=== PATIENT | male | born 2005 | race Caucasian/White ===

== ENCOUNTER 2024-04-08 06:19 | Emergency (ER) | payer OTHER, SELFPAY ==
[2024-04-08 06:25] VITALS: BP 124/72
[2024-04-08] MEDS: LET TOPICAL ANESTHETIC GEL 3 ML TOPICAL (06:39)
--- NOTE | 2024-04-08 06:41 | ED.SKININJ ---
HPI-Injury
General
Chief Complaint: Skin Surface Trauma
Source: patient and home care rn
Exam Limitations: developmental stage
Time Seen by Provider: 04/08/24 06:29
Nursing documentation reviewed up to this point in time: agreed with
History of Present Illness-Injury
Is this injury a work related problem?: No
Is pt an associate of [facility]/[place]?: No
Initial Injury comments:
Special-needs male from [facility] 2 cm scalp laceration in the left anterior scalp injured it on some headphones just prior to arrival he is acting normally per caregiver
Past History
Past History
ED Past Medical History: Psychiatric (Special needs behavioral issues)
Social History
Tobacco: Non-smoker
Alcohol: None
Drug: None
Personal: Single
Living: other
Employment: Not employed
Family History
Family History: Unable to obtain
Review of Systems
Review of Systems
All Other Systems: Not applicable
Phy Exam
Physical Exam
Physical Exam:
Physical Exam
General: no apparent distress, not acutely ill
Neck: No tongue bite
Lungs: no acute respiratory distress.
Neuro: Moves all extremities cooperative
Skin: 2 cm scalp laceration not involving the forehead on the left anterior scalp
Extremities: no edema.
Course
Orders/Labs/Results
Orders:
Orders
04/08/24 06:38
Lidocaine/Epinephrine/Tetracai [Let Topical Anesthetic Gel] 3 ml .ROUTE .STK-MED ONE
04/08/24 06:39
Lidocaine/Epinephrine/Tetracai [Let Topical Anesthetic Gel] 3 ml TOPICAL NOW STA
Vital Signs
Initial and Last Documented VS:
Initial Vital Signs
Temp Pulse Resp BP Pulse Ox
98.1 F 88 18 124/72 98
04/08/24 06:25 04/08/24 06:25 04/08/24 06:25 04/08/24 06:25 04/08/24 06:25
Last Documented Vital Signs
Temp Pulse Resp BP Pulse Ox
98.1 F 88 18 124/72 98
04/08/24 06:25 04/08/24 06:25 04/08/24 06:25 04/08/24 06:25 04/08/24 06:25
Procedures
Laceration Closure
Left Head:
Status of Wound: clean
Size of Wound in cm: 2
Description of Wound Edges: sharp
Preparation: cleaned with saline
Anesthesia: 1% Lidocaine with epi
Revision/Debridement: routine- no revision
Wound exploration: explored to base- no FB
Type of Closure: single layer closure
Skin Closure Material: 3-0 prolene
Number of sutures: 1
MDM/Problems Addressed
Differential Diagnosis Includes:
Laceration
*Critical Care Note
Total Time (30-74mins, 75-104mins- exclusive of procedures): Not Applicable
Update Note
Update Note:
Isolated scalp laceration
Will try some let gel, wound was irrigated by nursing
ED Attending Note
-
Portions of this chart may have been created with voice recognition software.� Occasional wrong word or��sound alike� substitutions may have occurred due to the inherent limitations of voice recognition software.
Discharge Plan
Departure
Patient Disposition: Home (Routine Discharge)
Date of Disposition: 04/08/24
Time of Disposition: 06:56
Patient with high blood pressure during this ER visit?: No
Condition: Good
Discharge Problem:
Laceration
Instructions: Laceration Repair With Stitches (DC)
Stand Alone Forms: Back to School
Activity Restrictions/Additional Instructions:
Stitches out in 7 to 10 days
You can gently wash his scalp with shampoo
Interventions
Interventions:
*Risk Screen - Suicide Last Done: 04/08/24 06:42
*General Assessment Last Done: 04/08/24 06:42
*Neglect/Abuse Screening Last Done: 04/08/24 06:42
ED- Fall Risk Assessment Last Done: 04/08/24 06:42
*ED COVID-19 Vaccine History Last Done: 04/08/24 06:42
ED-Skin Assessment Last Done: 04/08/24 06:42
Discharge Date and Time
Print Language: MEXICAN
--- NOTE | 2024-04-08 07:05 | EDRN ---
verbal report was given to the receiving RN at [facility]
== END 2024-04-08 07:06 | disposition home or self-care (01) ==
LOC: EMR 06:19
PROVIDERS: EMERGENCY PHYSICIAN Emergency Medicine
DX: S01.01XA Laceration without foreign body of scalp, initial encounter (principal); W22.8XXA Striking against or struck by other objects, initial encounter
CPT/HCPCS: 99283; 12001